=== PATIENT | male | born 1975 | race Caucasian/White ===

== ENCOUNTER 2020-06-16 14:55 | Inpatient (IN) | payer MEDICAID, SELFPAY ==
[2020-06-16] VITALS (7 sets, daily range): BP systolic 146–170; BP diastolic 89–142; PULSE 106–131; RESP 16–19; TEMP 35.9–36.9; O2SAT 97–98; BMI 29.3; BMI 28.8
--- NOTE | 2020-06-16 15:00 | EKG12_ITS ---
Test Reason : SEIZURES Blood Pressure : / mmHG Vent. Rate : 111 BPM Atrial Rate : 111 BPM P-R Int : 154 ms QRS Dur : 086 ms QT Int : 344 ms P-R-T Axes : 054 066 058 degrees QTc Int : 467 ms Sinus tachycardia Otherwise normal ECG Confirmed by KAREN JHAVERI, STEVIE ([id number]), editor trade journal JHONNY HUNTER ([id number]) on 06/18/2020 9:46:48 AM Referred By: GRACE Confirmed By:STEVIE JONES MD
--- NOTE | 2020-06-16 15:08 | ED.VIS.GEN ---
History of Present Illness Chief Complaint: Substance Abuse Informant: Patient Narrative: Presents requesting detox from alcohol. Drinking alcohol for years, alcohol of choice is vodka. He drinks up to a liter a day. He states today he already drank a liter last drink was an hour ago. Denies any recreational drug use. He states last assistance for alcohol was a month ago at [facility] and he was admitted for a week however upon discharge started drinking again. 2 weeks ago tried to stop drinking however had a withdrawal seizure was kept overnight at [facility]. He denies any suicidal homicidal ideations. He denies any morning tremors, however states he drinks when he wakes up. Prior similar symptoms: Yes Past Medical History Primary Care Physician: [facility] Doctor,Out of [NON-STAFF] - Past Medical History: - - Alcohol dependence Review of Systems General: Denies: Chills, Fever, Sweats Eyes: Denies: Visual changes - bilaterally, Diplopia ENT: Denies: Rhinorrhea, Sore throat Cardiovascular: Denies: Chest pain, Palpitations Respiratory: Denies: Dyspnea, Cough, Dyspnea on exertion Gastrointestinal: Denies: Abdominal pain, Nausea, Vomiting, Diarrhea, Melena, Hematochezia Genitourinary: Denies: Dysuria, Hematuria, Frequency Musculoskeletal: Denies: Back pain, Extremity Pain Skin: Denies: Rash, Wounds Neurological: Denies: Headache, Weakness, Numbness Psych: Denies: Depression, Suicidal thoughts, Suicidal ideations Physical Exam Vital Signs/Narrative: Vital Signs Temp Pulse Resp BP Pulse Ox 06/16/20 14:57 96.7 F L 128 H 16 170/142 H 98 General: Well nourished, Well developed, No Acute Distress Head: Normocephalic, Atraumatic Eyes: Perrl, EOMI ENT: Moist mucous membranes, No rhinorrhea Neck: Supple, Nontender Cardiovascular: Regular rate, Regular rhythm, No murmurs, Tachycardia Respiratory: No distress, CTA bilaterally, Chest nontender Abdomen: Soft, Nontender, Nondistended, Normal bowel sounds Back: Nontender, Normal Inspection Extremities: Nontender, No edema Skin: Normal color, No rash Neurological: Alert, Oriented x3, Cranial nerves II-XII grossly intact, Normal Strength, Normal Sensation Psychological: Normal affect, Normal Mood Diagnostic/Tx/Re-eval Abnormal Lab Results 02/07/0506/16/20 06/16/20 15:12 15:12 15:12 WBC 9.4 RBC 5.32 Hgb 16.5 Hct 48.9 MCV 91.9 MCH 31.0 MCHC 33.7 RDW Std Deviation 47.8 H RDW Coeff of Aleja 14.3 Plt Count 395 MPV 9.2 Immature Gran % (Auto) 0.500 Neut % (Auto) 69.2 Lymph % (Auto) 21.3 [place] % (Auto) 5.7 Eos % (Auto) 1.4 Baso % (Auto) 1.9 H Absolute Neuts (auto) 6.5 Absolute Lymphs (auto) 2.00 Nucleated RBC % 0 PT 11.5 L INR 0.9 Sodium 136 Potassium 4.7 Chloride 100 Carbon Dioxide 18.0 L Anion Gap 18 H BUN 14 Creatinine 0.89 Estim Creat Clear Calc 115.04 Est GFR (MDRD) Af Amer 119 Est GFR (MDRD) Non-Af 98 BUN/Creatinine Ratio 15.7 Glucose 65 L Calcium 8.8 Total Bilirubin 0.90 AST 82 H ALT 95 H Alkaline Phosphatase 115 Total Protein 7.6 Albumin 4.2 Globulin 3.4 Albumin/Globulin Ratio 1.2 Urine Opiates Screen Urine Methadone Screen Ur Barbiturates Screen Ur Phencyclidine Scrn Ur Amphetamines Screen U Methamphetamin-MDMA U Benzodiazepines Scrn Urine Cocaine Screen U Cannabinoids Screen Ur Drug Screen Comment Ethyl Alcohol 06/16/20 06/16/20 15:12 16:32 WBC RBC Hgb Hct MCV MCH MCHC RDW Std Deviation RDW Coeff of Aleja Plt Count MPV Immature Gran % (Auto) Neut % (Auto) Lymph % (Auto) [place] % (Auto) Eos % (Auto) Baso % (Auto) Absolute Neuts (auto) Absolute Lymphs (auto) Nucleated RBC % PT INR Sodium Potassium Chloride Carbon Dioxide Anion Gap BUN Creatinine Estim Creat Clear Calc Est GFR (MDRD) Af Amer Est GFR (MDRD) Non-Af BUN/Creatinine Ratio Glucose Calcium Total Bilirubin AST ALT Alkaline Phosphatase Total Protein Albumin Globulin Albumin/Globulin Ratio Urine Opiates Screen NEGATIVE Urine Methadone Screen NEGATIVE Ur Barbiturates Screen NEGATIVE Ur Phencyclidine Scrn NEGATIVE Ur Amphetamines Screen NEGATIVE U Methamphetamin-MDMA NEGATIVE U Benzodiazepines Scrn NEGATIVE Urine Cocaine Screen NEGATIVE U Cannabinoids Screen NEGATIVE Ur Drug Screen Comment Ethyl Alcohol 381.0 H* - EKG Initial EKG Interpretation: Sinus Rhythm - Sinus rate of 111, no ST or T wave changes. - Medical Decision Making Patient nontoxic tachycardic on eval EKG sinus rate of 111. He wants alcohol detox. Work-up alcohol returned at 381. Other labs essentially normal slight transaminitis however with alcohol history. Tox screen negative. Denies suicidal homicidal ideations. Discussed with hospitalist Dr. Smith for admission. ED Disposition - Plan for ED Patient: Disposition: Acute Care [facility] Diagnosis: Alcohol dependence, Transaminitis Referrals: [facility] Doctor,Out of [NON-STAFF] -
[2020-06-16 15:27] LABS: Absolute Neutrophil Count 6.5 X10^3/uL (2.0-7.7); Basophil# 0.18 X10^3/uL; Basophil% 1.9 % (0-1); Eosinophil# 0.13 X10^3/uL; Eosinophils% 1.4 % (0-5); Hematocrit 48.9 % (40-54); Hemoglobin 16.5 g/dL (13.0-16.5); Lymphocyte % 21.3 % (19-41); Mean Corp Hgb Conc 33.7 g/dL (32-36); Mean Corpuscular Volume 91.9 fL (80-94); Mean Platelet Vol. 9.2 fl (6.2-12.0); Monocyte# 0.53 X10^3/uL; Monocyte% 5.7 % (0-10); NRBC Flagged by Analyzer 0 % (0-5); Neutrophil # 6.48 X10^3/uL (2.7-7.7); Neutrophil % 69.2 % (47-70); Platelet Count 395 K/mm3 (150-450); RBC Distribution Width CV 14.3 % (11.6-14.6); RBC Distribution Width SD 47.8 fl (35.1-43.9); Red Blood Count 5.32 M/mm3 (4.6-6.2); White Blood Count 9.4 K/mm3 (4.4-11.0)
[2020-06-16 15:38] LABS: International Normalized Ratio 0.9; Prothrombin Time (Protime)PT. 11.5 SECONDS (11.7-14.9)
[2020-06-16] MEDS: 0.9% Normal Saline 1,000 ML 999 ML IV (15:47)
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
[2020-06-16 16:14] LABS: ALB/GLOB Ratio 1.2 RATIO (0.9-2.4); Albumin, Serum 4.2 g/dL (3.2-5.0); BUN 14 mg/dL (7-18); BUN/Creat Ratio 15.7 RATIO (10-20); Calcium,Total 8.8 mg/dL (8.5-10.1); Creatinine, Serum 0.89 mg/dL (0.70-1.30); EST Glomerular Filtration Rate 98 mL/min (>60); Est Glom Filt Rate - Afr Amer 119 mL/min (>60); Estimated Creatinine Clearance 115.04 ml/min; Globulin 3.4 g/dL (2.2-4.2); Glucose 65 mg/dL (74-106); Protein, Total 7.6 g/dL (6.4-8.2)
[2020-06-16 16:15] LABS: AST(SGOT) 82 U/L (15-37); Alanine Aminotransfer ALT/SGPT 95 U/L (16-61); Alkaline Phosphatase 115 U/L (45-117); Anion Gap 18 (5-15); Chloride 100 mmol/L (98-107); Potassium 4.7 mmol/L (3.5-5.1); Sodium Level 136 mmol/L (136-145)
[2020-06-16 17:26] LABS: Amphetamine Urine VISTA NEGATIVE (<1000 ng/mL); Barbiturate Urine VISTA NEGATIVE (< 200 ng/mL); Benzodiazepine Urine VISTA NEGATIVE (< 200 ng/mL); Cocaine Urine VISTA NEGATIVE (< 300 ng/mL); Ecstacy Urine VISTA NEGATIVE (< 500 ng/mL); Methadone Urine VISTA NEGATIVE (< 300 ng/mL); PCP Urine VISTA NEGATIVE (< 25 ng/mL); THC Urine VISTA NEGATIVE (< 50 ng/mL); Vista UDS pH Range 5
--- NOTE | 2020-06-16 17:29 | CM.ED ---
Social Work Consult: Substance Abuse Informant: Self Referral Met with patient in room. Introduced self and social service liaison role. Patient reports substance of choice as alcohol and is seeking medical management of withdrawal symptoms. Patient verbally agreeing to [facility]. Telephone call to [employer] [facility] HOLDEN, GONZALEZ
[2020-06-16] MEDS: Phenobarbital 32.4 MG Tablet 64.8 MG PO ×2 (18:57→21:36)
[2020-06-16] MEDS: Dextrose 5%/0.9% NaCl 1,000 ML 75 ML IV (18:58)
[2020-06-16] MEDS: hydrOXYzine PAM 25 MG Capsule 50 MG PO (19:42)
[2020-06-16] MEDS: Gabapentin 300 MG Capsule PO (19:42)
[2020-06-16] MEDS: 0.9% Saline Lock 10 ML Syringe IV (19:43)
[2020-06-16] MEDS: traZODone 100 MG Tablet PO (21:36)
[2020-06-17] VITALS (15 sets, daily range): BP systolic 125–150; BP diastolic 55–90; PULSE 80–105; RESP 16–18; TEMP 36.6–37; O2SAT 94–98
[2020-06-17] MEDS: Phenobarbital 32.4 MG Tablet 64.8 MG PO ×6 (01:43→21:37)
[2020-06-17 06:55] LABS: Absolute Lymphocyte Count 2.42 X10^3/uL (0.83-4.51); Absolute Neutrophil Count 3.3 X10^3/uL (2.0-7.7); Basophil# 0.06 X10^3/uL; Basophil% 0.9 % (0-1); Eosinophil# 0.25 X10^3/uL; Eosinophils% 3.7 % (0-5); Hematocrit 40.3 % (40-54); Hemoglobin 13.6 g/dL (13.0-16.5); Lymphocyte # 2.42 X10^3/ul (4.0); Lymphocyte % 35.7 % (19-41); Mean Corp Hgb Conc 33.7 g/dL (32-36); Mean Corpuscular Hgb 31.3 pg (27.0-32.0); Mean Corpuscular Volume 92.6 fL (80-94); Mean Platelet Vol. 9.1 fl (6.2-12.0); Monocyte# 0.67 X10^3/uL; Monocyte% 9.9 % (0-10); NRBC Flagged by Analyzer 0 % (0-5); Neutrophil # 3.32 X10^3/uL (2.7-7.7); Neutrophil % 49.1 % (47-70); Platelet Count 235 K/mm3 (150-450); RBC Distribution Width CV 13.9 % (11.6-14.6); RBC Distribution Width SD 47.8 fl (35.1-43.9); Red Blood Count 4.35 M/mm3 (4.6-6.2); White Blood Count 6.8 K/mm3 (4.4-11.0)
--- NOTE | 2020-06-17 07:32 | PN_ITS ---
Patient Problems: Active and Suspected Problems Alcohol withdrawal (Acute) Metabolic acidosis (Acute) Transaminitis (Acute) Alcohol dependence (Acute) Vitals/I&O's: Vital Signs Temp Pulse Resp BP Pulse Ox 98.2 F 87 18 150/70 H 98 06/17/20 05:46 06/17/20 05:46 06/17/20 05:46 06/17/20 05:46 06/17/20 06:41 Oxygen Delivery Method Room Air Weight: 96.3 kg Body Mass Index (BMI) 28.8 Intake and Output for Last 24 Hours 06/15/20 06/16/20 06/17/20 23:59 23:59 23:59 Intake Total 1000 / 1000 Balance 1000 / 1000 Laboratory Results 06/16/20 15:12: WBC 9.4, RBC 5.32, Hgb 16.5, Hct 48.9, MCV 91.9, MCH 31.0, MCHC 33.7, RDW Std Deviation 47.8 H, RDW Coeff of Aleja 14.3, Plt Count 395, MPV 9.2, Immature Gran % (Auto) 0.500, Neut % (Auto) 69.2, Lymph % (Auto) 21.3, [place] % (Auto) 5.7, Eos % (Auto) 1.4, Baso % (Auto) 1.9 H, Absolute Neuts (auto) 6.5, Absolute Lymphs (auto) 2.00, Nucleated RBC % 0 06/16/20 15:12: PT 11.5 L, INR 0.9 06/16/20 15:12: Sodium 136, Potassium 4.7, Chloride 100, Carbon Dioxide 18.0 L, Anion Gap 18 H, BUN 14, Creatinine 0.89, Estim Creat Clear Calc 115.04, Est GFR (MDRD) Af Amer 119, Est GFR (MDRD) Non-Af 98, BUN/Creatinine Ratio 15.7, Glucose 65 L, Calcium 8.8, Total Bilirubin 0.90, AST 82 H, ALT 95 H, Alkaline Phosphatase 115, Total Protein 7.6, Albumin 4.2, Globulin 3.4, Albumin/Globulin Ratio 1.2 06/16/20 15:12: Ethyl Alcohol 381.0 H* 06/16/20 16:32: Urine Opiates Screen NEGATIVE, Urine Methadone Screen NEGATIVE, Ur Barbiturates Screen NEGATIVE, Ur Phencyclidine Scrn NEGATIVE, Ur Amphetamines Screen NEGATIVE, U Methamphetamin-MDMA NEGATIVE, U Benzodiazepines Scrn NEGATIVE, Urine Cocaine Screen NEGATIVE, U Cannabinoids Screen NEGATIVE, Ur Drug Screen Comment 06/17/20 06:43: WBC 6.8, RBC 4.35 L, Hgb 13.6, Hct 40.3, MCV 92.6, MCH 31.3, MCHC 33.7, RDW Std Deviation 47.8 H, RDW Coeff of Aleja 13.9, Plt Count 235, MPV 9.1, Immature Gran % (Auto) 0.700, Neut % (Auto) 49.1, Lymph % (Auto) 35.7, [place] % (Auto) 9.9, Eos % (Auto) 3.7, Baso % (Auto) 0.9, Absolute Neuts (auto) 3.3, Absolute Lymphs (auto) 2.42, Nucleated RBC % 0 06/17/20 06:43: Sodium Pending, Potassium Pending, Chloride Pending, Carbon Di oxide Pending, Anion Gap Pending, BUN Pending, Creatinine Pending, Est GFR (MDRD) Af Amer Pending, Est GFR (MDRD) Non-Af Pending, BUN/Creatinine Ratio Pending, Glucose Pending, Calcium Pending, Phosphorus Pending, Magnesium Pending, Total Bilirubin Pending, AST Pending, ALT Pending, Alkaline Phosphatase Pending, Total Protein Pending, Albumin Pending Current Medications Al Hydroxide/Mg Hydroxide (Mag Hydrox/Al Hydrox/Simeth 30 Ml Udc) 30 ml PO Q6H PRN PRN PRN Reason: Gastric Burning Albuterol Sulfate (Albuterol 2.5 Mg/3 Ml Vial.Neb.) 2.5 mg INHALATION Q2H PRN PRN PRN Reason: Shortness of Breath/Wheezing Dicyclomine HCl (Dicyclomine 10 Mg Capsule) 20 mg PO Q6H PRN PRN PRN Reason: abdominal discomfort Folic Acid (Folic Acid 1 Mg Tablet) 1 mg PO DAILY@0800 ARGELIA Gabapentin (Gabapentin 300 Mg Capsule) 300 mg PO Q8H PRN PRN PRN Reason: moderate to severe anxiety Last Admin: 06/16/20 19:42 Dose: 300 mg Documented by: Hydroxyzine Pamoate (Hydroxyzine Carmenza 25 Mg Capsule) 50 mg PO Q4H PRN PRN PRN Reason: mild anxiety Last Admin: 06/16/20 19:42 Dose: 50 mg Documented by: Loperamide HCl (Loperamide 2 Mg Capsule) 2 mg PO Q4H PRN PRN PRN Reason: LOOSE STOOLS Melatonin (Melatonin 3 Mg Tablet) 3 mg PO QHS PRN PRN PRN Reason: INSOMNIA Phenobarbital (Phenobarbital 32.4 Mg Tablet) 97.2 mg PO Q4H ARGELIA; Taper Stop: 06/21/20 01:59 Last Admin: 06/17/20 05:47 Dose: 97.2 mg Documented by: Sodium Chloride (0.9% Saline Lock 10 Ml Syringe) 10 - 40 ml IV UD PRN PRN Reason: SALINE FLUSH Last Admin: 06/16/20 19:43 Dose: 10 ml Documented by: Thiamine HCl (Thiamine Hydrochloride 100 Mg Tablet) 100 mg PO DAILYCM ARGELIA Trazodone HCl (Trazodone 100 Mg Tablet) 100 mg PO QHS PRN PRN Reason: INSOMNIA Last Admin: 06/16/20 21:36 Dose: 100 mg Documented by: STROKE Vital Signs/Narrative: Vital Signs Temp Pulse Resp BP Pulse Ox 06/17/20 06:41 98 06/17/20 05:46 98.2 F 87 18 150/70 H 98 06/17/20 03:59 81 Medical Necessity - Tobacco Use Smoking Status: Current every day smoker Assessment/Plan All Active Problems Alcohol withdrawal (Acute) Metabolic acidosis (Acute) Transaminitis (Acute) Alcohol dependence (Acute)
[2020-06-17 07:33] LABS: ALB/GLOB Ratio 1.1 RATIO (0.9-2.4); AST(SGOT) 48 U/L (15-37); Alanine Aminotransfer ALT/SGPT 64 U/L (16-61); Albumin, Serum 3.1 g/dL (3.2-5.0); Alkaline Phosphatase 82 U/L (45-117); Anion Gap 4 (5-15); BUN 11 mg/dL (7-18); Calcium,Total 8.2 mg/dL (8.5-10.1); Chloride 103 mmol/L (98-107); Creatinine, Serum 0.78 mg/dL (0.70-1.30); EST Glomerular Filtration Rate 113 mL/min (>60); Est Glom Filt Rate - Afr Amer 137 mL/min (>60); Estimated Creatinine Clearance 131.27 ml/min; Globulin 2.8 g/dL (2.2-4.2); Glucose 86 mg/dL (74-106); Phosphorus 3.8 mg/dL (2.5-4.9); Potassium 3.9 mmol/L (3.5-5.1); Protein, Total 5.9 g/dL (6.4-8.2); Sodium Level 136 mmol/L (136-145)
[2020-06-17] MEDS: Thiamine Hydrochloride 100 MG Tablet PO (07:40)
[2020-06-17] MEDS: 0.9% Saline Lock 10 ML Syringe IV (07:40)
[2020-06-17] MEDS: Folic Acid 1 MG Tablet PO (07:40)
[2020-06-17] MEDS: Gabapentin 300 MG Capsule PO ×2 (09:01→21:33)
--- NOTE | 2020-06-17 10:01 | ADDICTION ---
This data analyst report writer met with PT in his room to complete ASAM, MSE, AUDIT assessments and to plan for discharge. PT A/Ox4 and amiable to this visit. All assessments completed, sent to [facility] and placed in PT's chart. PT appears appropriate for the 4.0 LOC based on ASAM. PT requesting to d/c to home and is scheduled to admit into [facility] on 06/22/20.
--- NOTE | 2020-06-17 11:34 | PN_ITS ---
<BoraDebbie RECONNAISSANCE MAN - Last Filed: 06/17/20 11:41> Patient Problems: Active and Suspected Problems Alcohol withdrawal (Acute) Metabolic acidosis (Acute) Transaminitis (Acute) Alcohol dependence (Acute) Subjective: Patient seen and examined. Denies significant withdrawal symptoms. No acute events overnight. Patient states he has had withdrawal seizure in the past. - Physical Exam Vitals/I&O's: Vital Signs Temp Pulse Resp BP Pulse Ox 98.5 F 89 18 128/77 H 96 06/17/20 08:51 06/17/20 08:51 06/17/20 08:51 06/17/20 08:51 06/17/20 08:51 Oxygen Delivery Method Room Air Weight: 212 lb 4.882 oz Body Mass Index (BMI) 28.8 Intake and Output for Last 24 Hours 06/15/20 06/16/20 06/17/20 23:59 23:59 23:59 Intake Total 1000 / 1000 951.25 / 951.25 Balance 1000 / 1000 951.25 / 951.25 General: Alert, Oriented x3, Cooperative HEENT: Atraumatic, PERRLA, EOMI, Normocephalic Neck: Supple, No JVD, Negative Carotid Bruits Lungs: Clear to auscultation, Normal air movement Cardiovascular: Regular rate, No murmurs Abdomen: Bowel Sounds Present, Soft, Non Tender Extremities: No clubbing, No cyanosis, No edema, Capillary Refill Less than 3 Seconds Skin: No rashes, No breakdown Musculoskeletal: No Tenderness to Palpation of Joints or Extremities Neurological: Cranial nerves II-XII grossly intact, Neuro grossly intact Psych/Mental Status: Normal Affect, Appropriate Laboratory Results 06/16/20 15:12: WBC 9.4, RBC 5.32, Hgb 16.5, Hct 48.9, MCV 91.9, MCH 31.0, MCHC 33.7, RDW Std Deviation 47.8 H, RDW Coeff of Aleja 14.3, Plt Count 395, MPV 9.2, Immature Gran % (Auto) 0.500, Neut % (Auto) 69.2, Lymph % (Auto) 21.3, Knott % (Auto) 5.7, Eos % (Auto) 1.4, Baso % (Auto) 1.9 H, Absolute Neuts (auto) 6.5, Absolute Lymphs (auto) 2.00, Nucleated RBC % 0 06/16/20 15:12: PT 11.5 L, INR 0.9 06/16/20 15:12: Sodium 136, Potassium 4.7, Chloride 100, Carbon Dioxide 18.0 L, Anion Gap 18 H, BUN 14, Creatinine 0.89, Estim Creat Clear Calc 115.04, Est GFR (MDRD) Af Amer 119, Est GFR (MDRD) Non-Af 98, BUN/Creatinine Ratio 15.7, Glucose 65 L, Calcium 8.8, Total Bilirubin 0.90, AST 82 H, ALT 95 H, Alkaline Phosphatase 115, Total Protein 7.6, Albumin 4.2, Globulin 3.4, Albumin/Globulin Ratio 1.2 06/16/20 15:12: Ethyl Alcohol 381.0 H* 06/16/20 16:32: Urine Opiates Screen NEGATIVE, Urine Methadone Screen NEGATIVE, Ur Barbiturates Screen NEGATIVE, Ur Phencyclidine Scrn NEGATIVE, Ur Amphetamines Screen NEGATIVE, U Methamphetamin-MDMA NEGATIVE, U Benzodiazepines Scrn NEGATIVE, Urine Cocaine Screen NEGATIVE, U Cannabinoids Screen NEGATIVE, Ur Drug Screen Comment 06/17/20 06:43: WBC 6.8, RBC 4.35 L, Hgb 13.6, Hct 40.3, MCV 92.6, MCH 31.3, MCHC 33.7, RDW Std Deviation 47.8 H, RDW Coeff of Aleja 13.9, Plt Count 235, MPV 9.1, Immature Gran % (Auto) 0.700, Neut % (Auto) 49.1, Lymph % (Auto) 35.7, Knott % (Auto) 9.9, Eos % (Auto) 3.7, Baso % (Auto) 0.9, Absolute Neuts (auto) 3.3, Absolute Lymphs (auto) 2.42, Nucleated RBC % 0 06/17/20 06:43: Sodium 136, Potassium 3.9, Chloride 103, Carbon Dioxide 29.0, Anion Gap 4 L, BUN 11, Creatinine 0.78, Estim Creat Clear Calc 131.27, Est GFR (MDRD) Af Amer 137, Est GFR (MDRD) Non-Af 113, BUN/Creatinine Ratio 14.0, Glucose 86, Calcium 8.2 L, Phosphorus 3.8, Magnesium 2.0, Total Bilirubin 1.60 H , AST 48 H, ALT 64 H, Alkaline Phosphatase 82, Total Protein 5.9 L, Albumin 3.1 L, Globulin 2.8, Albumin/Globulin Ratio 1.1 Current Medications Al Hydroxide/Mg Hydroxide (Mag Hydrox/Al Hydrox/Simeth 30 Ml Udc) 30 ml PO Q6H PRN PRN PRN Reason: Gastric Burning Albuterol Sulfate (Albuterol 2.5 Mg/3 Ml Vial.Neb.) 2.5 mg INHALATION Q2H PRN PRN PRN Reason: Shortness of Breath/Wheezing Dicyclomine HCl (Dicyclomine 10 Mg Capsule) 20 mg PO Q6H PRN PRN PRN Reason: abdominal discomfort Folic Acid (Folic Acid 1 Mg Tablet) 1 mg PO DAILY@0800 [facility] Last Admin: 06/17/20 07:40 Dose: 1 mg Documented by: Gabapentin (Gabapentin 300 Mg Capsule) 300 mg PO Q8H PRN PRN PRN Reason: moderate to severe anxiety Last Admin: 06/17/20 09:01 Dose: 300 mg Documented by: Hydroxyzine Pamoate (Hydroxyzine Carmenza 25 Mg Capsule) 50 mg PO Q4H PRN PRN PRN Reason: mild anxiety Last Admin: 06/16/20 19:42 Dose: 50 mg Documented by: Loperamide HCl (Loperamide 2 Mg Capsule) 2 mg PO Q4H PRN PRN PRN Reason: LOOSE STOOLS Melatonin (Melatonin 3 Mg Tablet) 3 mg PO QHS PRN PRN PRN Reason: INSOMNIA Phenobarbital (Phenobarbital 32.4 Mg Tablet) 97.2 mg PO Q4H [facility]; Taper Stop: 06/21/20 01:59 Last Admin: 06/17/20 09:38 Dose: 97.2 mg Documented by: Sodium Chloride (0.9% Saline Lock 10 Ml Syringe) 10 - 40 ml IV UD PRN PRN Reason: SALINE FLUSH Last Admin: 06/17/20 07:40 Dose: 10 ml Documented by: Thiamine HCl (Thiamine Hydrochloride 100 Mg Tablet) 100 mg PO DAILYCM [facility] Last Admin: 06/17/20 07:40 Dose: 100 mg Documented by: Trazodone HCl (Trazodone 100 Mg Tablet) 100 mg PO QHS PRN PRN Reason: INSOMNIA Last Admin: 06/16/20 21:36 Dose: 100 mg Documented by: Medical Necessity - Tobacco Use Smoking Status: Current every day smoker Assessment/Plan All Active Problems Alcohol withdrawal (Acute) Metabolic acidosis (Acute) Transaminitis (Acute) Alcohol dependence (Acute) 1. Acute alcohol withdrawal, chronic alcohol dependence-medical stabilization per protocol. Phenobarbital taper. As needed regimen for somatic complaints. Thiamine, folic acid, multivitamin supplementation. [facility] consult. CIWA/Ativan protocol. Alcohol level 381 on admission. Tox screen otherwise negative. Per [facility] consult note, plan for residential admission 06/22/2020. 2. Anion gap metabolic acidosis-secondary to above, improved. 3. Mild transaminitis-secondary to #1. Repeat improved. DVT prophylaxis-low risk, not indicated This patient was seen by MELI Bronson under the supervision of Dr. Mcneal. <Michelle Mcneal - Last Filed: 06/17/20 15:58> - Physical Exam Vitals/I&O's: Vital Signs Temp Pulse Resp BP Pulse Ox 98.4 F 95 18 143/88 H 98 06/17/20 13:01 06/17/20 13:01 06/17/20 13:01 06/17/20 13:01 06/17/20 13:01 Oxygen Delivery Method Room Air Weight: 96.3 kg Body Mass Index (BMI) 28.8 Intake and Output for Last 24 Hours 06/15/20 06/16/20 06/17/20 23:59 23:59 23:59 Intake Total 1000 / 1000 951.25 / 951.25 Balance 1000 / 1000 951.25 / 951.25 Laboratory Results 06/16/20 15:12: WBC 9.4, RBC 5.32, Hgb 16.5, Hct 48.9, MCV 91.9, MCH 31.0, MCHC 33.7, RDW Std Deviation 47.8 H, RDW Coeff of Aleja 14.3, Plt Count 395, MPV 9.2, Immature Gran % (Auto) 0.500, Neut % (Auto) 69.2, Lymph % (Auto) 21.3, Knott % (Auto) 5.7, Eos % (Auto) 1.4, Baso % (Auto) 1.9 H, Absolute Neuts (auto) 6.5, Absolute Lymphs (auto) 2.00, Nucleated RBC % 0 06/16/20 15:12: PT 11.5 L, INR 0.9 06/16/20 15:12: Sodium 136, Potassium 4.7, Chloride 100, Carbon Dioxide 18.0 L, Anion Gap 18 H, BUN 14, Creatinine 0.89, Estim Creat Clear Calc 115.04, Est GFR (MDRD) Af Amer 119, Est GFR (MDRD) Non-Af 98, BUN/Creatinine Ratio 15.7, Glucose 65 L, Calcium 8.8, Total Bilirubin 0.90, AST 82 H, ALT 95 H, Alkaline Phosphatase 115, Total Protein 7.6, Albumin 4.2, Globulin 3.4, Albumin/Globulin Ratio 1.2 06/16/20 15:12: Ethyl Alcohol 381.0 H* 06/16/20 16:32: Urine Opiates Screen NEGATIVE, Urine Methadone Screen NEGATIVE, Ur Barbiturates Screen NEGATIVE, Ur Phencyclidine Scrn NEGATIVE, Ur Amphetamines Screen NEGATIVE, U Methamphetamin-MDMA NEGATIVE, U Benzodiazepines Scrn NEGATIVE, Urine Cocaine Screen NEGATIVE, U Cannabinoids Screen NEGATIVE, Ur Drug Screen Comment 06/17/20 06:43: WBC 6.8, RBC 4.35 L, Hgb 13.6, Hct 40.3, MCV 92.6, MCH 31.3, MCHC 33.7, RDW Std Deviation 47.8 H, RDW Coeff of Aleja 13.9, Plt Count 235, MPV 9.1, Immature Gran % (Auto) 0.700, Neut % (Auto) 49.1, Lymph % (Auto) 35.7, Knott % (Auto) 9.9, Eos % (Auto) 3.7, Baso % (Auto) 0.9, Absolute Neuts (auto) 3.3, Absolute Lymphs (auto) 2.42, Nucleated RBC % 0 06/17/20 06:43: Sodium 136, Potassium 3.9, Chloride 103, Carbon Dioxide 29.0, Anion Gap 4 L, BUN 11, Creatinine 0.78, Estim Creat Clear Calc 131.27, Est GFR (MDRD) Af Amer 137, Est GFR (MDRD) Non-Af 113, BUN/Creatinine Ratio 14.0, Glucose 86, Calcium 8.2 L, Phosphorus 3.8, Magnesium 2.0, Total Bilirubin 1.60 H , AST 48 H, ALT 64 H, Alkaline Phosphatase 82, Total Protein 5.9 L, Albumin 3.1 L, Globulin 2.8, Albumin/Globulin Ratio 1.1 Current Medications Al Hydroxide/Mg Hydroxide (Mag Hydrox/Al Hydrox/Simeth 30 Ml Udc) 30 ml PO Q6H PRN PRN PRN Reason: Gastric Burning Albuterol Sulfate (Albuterol 2.5 Mg/3 Ml Vial.Neb.) 2.5 mg INHALATION Q2H PRN PRN PRN Reason: Shortness of Breath/Wheezing Dicyclomine HCl (Dicyclomine 10 Mg Capsule) 20 mg PO Q6H PRN PRN PRN Reason: abdominal discomfort Folic Acid (Folic Acid 1 Mg Tablet) 1 mg PO DAILY@0800 [facility] Last Admin: 06/17/20 07:40 Dose: 1 mg Documented by: Gabapentin (Gabapentin 300 Mg Capsule) 300 mg PO Q8H PRN PRN PRN Reason: moderate to severe anxiety Last Admin: 06/17/20 09:01 Dose: 300 mg Documented by: Hydroxyzine Pamoate (Hydroxyzine Carmenza 25 Mg Capsule) 50 mg PO Q4H PRN PRN PRN Reason: mild anxiety Last Admin: 06/17/20 13:11 Dose: 50 mg Documented by: Loperamide HCl (Loperamide 2 Mg Capsule) 2 mg PO Q4H PRN PRN PRN Reason: LOOSE STOOLS Melatonin (Melatonin 3 Mg Tablet) 3 mg PO QHS PRN PRN PRN Reason: INSOMNIA Nutritional Formula (Lactose Free) (Ensure Enlive 120 Ml Liquid) 120 ml PO 4X/DAY [facility] Phenobarbital (Phenobarbital 32.4 Mg Tablet) 97.2 mg PO Q4H [facility]; Taper Stop: 06/21/20 01:59 Last Admin: 06/17/20 13:47 Dose: 97.2 mg Documented by: Sodium Chloride (0.9% Saline Lock 10 Ml Syringe) 10 - 40 ml IV UD PRN PRN Reason: SALINE FLUSH Last Admin: 06/17/20 07:40 Dose: 10 ml Documented by: Thiamine HCl (Thiamine Hydrochloride 100 Mg Tablet) 100 mg PO DAILYCM [facility] Last Admin: 06/17/20 07:40 Dose: 100 mg Documented by: Trazodone HCl (Trazodone 100 Mg Tablet) 100 mg PO QHS PRN PRN Reason: INSOMNIA Last Admin: 06/16/20 21:36 Dose: 100 mg Documented by: Assessment/Plan This patient was seen in conjunction with Debbie Sahni NP. I have independently interviewed and examined the patient and reviewed pertinent historical, laboratory, and other data. Please refer to her note for patient's presentation, findings, and recommendations. Patient was seen and examined. No acute events overnight. He feels improved, stable Vitals were reviewed -stable Physical Exam: Gen: Looks in some discomfort, not pale, not jaundiced, alert oriented x3 CVS:HS I +II, regular, no murmurs RESP: Diminished at lung bases GI: BS present and normal, nontender, no palpable organs EXT:No edema Labs reviewed: ASSESSMENT: 1. Acute alcohol withdrawal 2. Anion gap metabolic acidosis 3. Elevated liver function tests Meds reviewed Plan: Continue on phenobarbital withdrawal protocol Inpatient E&M: 90552 Subs Hosp L2
[2020-06-17] MEDS: hydrOXYzine PAM 25 MG Capsule 50 MG PO (13:11)
--- NOTE | 2020-06-17 14:31 | CHAPLAIN ---
Type of Pastoral Visit _x__ Initial Visit ___ Follow-up Visit ___ On-call Visit ___ General Patient Visit ___ Spiritual Assessment ___ Family Conference ___ Bereavement ___ Rapid Response ___ Code Blue ___ Other (describe below) Pastoral Care Referral From _x__ Patient ___ Family ___ Nurse ___ Physician ___ Tester Rocket Engine ___ Material Expediter ___ Other (describe below) Sacrament/Intervention _x__ Active listening ___ Anointing ___ Islam ___ Bereavement ___ Communion ___ Ghislaine exploration ___ _x__ Life review _x__ Prayer ___ Reconciliation ___ Sacrament of Sick _x__ Supportive presence ___ Wedding ___ Other (describe below) Pastoral Comments
[2020-06-17] MEDS: LORazepam 2 MG/ML Syringe IV (15:38)
[2020-06-17] MEDS: LORazepam 1 MG Tablet 2 MG PO ×2 (17:21→22:04)
[2020-06-17] MEDS: traZODone 100 MG Tablet PO (21:33)
[2020-06-18] MEDS: Phenobarbital 32.4 MG Tablet 64.8 MG PO ×4 (01:51→13:20)
[2020-06-18 02:00] VITALS: BP 137/91; PULSE 78; PULSE 82; RESP 16; TEMP 36.3; O2SAT 97
[2020-06-18 03:45] VITALS: PULSE 74
[2020-06-18] MEDS: Thiamine Hydrochloride 100 MG Tablet PO (07:34)
[2020-06-18] MEDS: Folic Acid 1 MG Tablet PO (07:34)
[2020-06-18 07:48] VITALS: O2SAT 97
[2020-06-18 08:49] VITALS: BP 148/89; PULSE 97; RESP 16; TEMP 36.6; O2SAT 100
--- NOTE | 2020-06-18 10:17 | PCM.PN.HOSP ---
Patient Problems: Active and Suspected Problems Alcohol withdrawal (Acute) Metabolic acidosis (Acute) Transaminitis (Acute) Alcohol dependence (Acute) Subjective: Patient states he feels a little confused. Denies any internal tremulous this. States his withdrawal has been fairly smooth with the phenobarbital. Has no acute complaints. Is worried about his ex- because she has not called in that he knows of and he has not heard from her. I did remind him he does not have a phone at this time for her to call him at. Vitals/I&O's: Vital Signs Temp Pulse Resp BP Pulse Ox 97.9 F 97 16 148/89 H 100 06/18/20 08:49 06/18/20 08:49 06/18/20 08:49 06/18/20 08:49 06/18/20 08:49 Oxygen Delivery Method Room Air Weight: 96.3 kg Body Mass Index (BMI) 28.8 Intake and Output for Last 24 Hours 06/16/20 06/17/20 06/18/20 23:59 23:59 23:59 Intake Total 1000 / 1000 951.25 / 951.25 Output Total 100 / 100 Balance 1000 / 1000 951.25 / 851.25 -100 / -100 General: Alert, Oriented x3, Cooperative, No apparent distress, Well developed, Well nourished, - - Was confused on the day of the week and when he was admitted, no hallucinations, patient appears older than stated age HEENT: Atraumatic, Normocephalic Oral: Moist Mucosa, No Gingival or Mucosal Lesions/ Ulcerations Neck: Supple, Trachea Midline Lungs: Clear to auscultation, No rhonchi, No wheeze, No rales, Diminished Cardiovascular: Regular rate, Regular Rhythm, Normal S1, Normal S2, No murmurs, No Ectopic Activity, No rub noted, No Gallop Abdomen: Bowel Sounds Present, Soft, Non Tender, Non-Distended, - - Large abdominal incisional hernia Extremities: No clubbing, No cyanosis, No edema, Capillary Refill Less than 3 Seconds, Peripheral Pulses Normal Skin: No rashes, No breakdown Neurological: Cranial nerves II-XII grossly intact, Neuro grossly intact Psych/Mental Status: Normal Affect, Appropriate Current Medications Al Hydroxide/Mg Hydroxide (Mag Hydrox/Al Hydrox/Simeth 30 Ml Udc) 30 ml PO Q6H PRN PRN PRN Reason: Gastric Burning Albuterol Sulfate (Albuterol 2.5 Mg/3 Ml Vial.Neb.) 2.5 mg INHALATION Q2H PRN PRN PRN Reason: Shortness of Breath/Wheezing Dicyclomine HCl (Dicyclomine 10 Mg Capsule) 20 mg PO Q6H PRN PRN PRN Reason: abdominal discomfort Folic Acid (Folic Acid 1 Mg Tablet) 1 mg PO DAILY@0800 [facility] Last Admin: 06/18/20 07:34 Dose: 1 mg Documented by: Gabapentin (Gabapentin 300 Mg Capsule) 300 mg PO Q8H PRN PRN PRN Reason: moderate to severe anxiety Last Admin: 06/17/20 21:33 Dose: 300 mg Documented by: Hydroxyzine Pamoate (Hydroxyzine Carmenza 25 Mg Capsule) 50 mg PO Q4H PRN PRN PRN Reason: mild anxiety Last Admin: 06/17/20 13:11 Dose: 50 mg Documented by: Loperamide HCl (Loperamide 2 Mg Capsule) 2 mg PO Q4H PRN PRN PRN Reason: LOOSE STOOLS Lorazepam (Lorazepam 1 Mg Tablet) 2 mg PO Q2H PRN PRN; Protocol PRN Reason: CIWA score > 8 but <15 Last Admin: 06/17/20 22:04 Dose: 2 mg Documented by: Lorazepam (Lorazepam 1 Mg Tablet) 2 mg PO UD PRN; Protocol PRN Reason: CIWA score >/=15. Lorazepam (Lorazepam 2 Mg/Ml Syringe) 2 mg IV Q2H PRN PRN; Protocol PRN Reason: CIWA score > 8 but <15 Last Admin: 06/17/20 15:38 Dose: 2 mg Documented by: Lorazepam (Lorazepam 2 Mg/Ml Syringe) 2 mg IV UD PRN; Protocol PRN Reason: CIWA score >/=15. Melatonin (Melatonin 3 Mg Tablet) 3 mg PO QHS PRN PRN PRN Reason: INSOMNIA Nutritional Formula (Lactose Free) (Ensure Enlive 120 Ml Liquid) 120 ml PO 4X/DAY [facility] Last Admin: 06/17/20 21:35 Dose: 120 ml Documented by: Phenobarbital (Phenobarbital 32.4 Mg Tablet) 64.8 mg PO Q4H [facility]; Taper Stop: 06/21/20 01:59 Last Admin: 06/18/20 06:55 Dose: 64.8 mg Documented by: Sodium Chloride (0.9% Saline Lock 10 Ml Syringe) 10 - 40 ml IV UD PRN PRN Reason: SALINE FLUSH Last Admin: 06/17/20 07:40 Dose: 10 ml Documented by: Thiamine HCl (Thiamine Hydrochloride 100 Mg Tablet) 100 mg PO DAILYCM [facility] Last Admin: 06/18/20 07:34 Dose: 100 mg Documented by: Trazodone HCl (Trazodone 100 Mg Tablet) 100 mg PO QHS PRN PRN Reason: INSOMNIA Last Admin: 06/17/20 21:33 Dose: 100 mg Documented by: STROKE Vital Signs/Narrative: Vital Signs Temp Pulse Resp BP Pulse Ox 06/18/20 08:49 97.9 F 97 16 148/89 H 100 06/18/20 07:48 97 Medical Necessity - Tobacco Use Smoking Status: Current every day smoker Assessment/Plan All Active Problems Alcohol withdrawal (Acute) Metabolic acidosis (Acute) Transaminitis (Acute) Alcohol dependence (Acute) Acute alcohol withdrawal -Detox with phenobarbital--> patient is now on 64.8 mg every 4 hours -Supportive medications -180 following and the plan as of yesterday was the patient will be discharged go to the hotel he has been staying at 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 and be admitted on 06/22/2020 06/15/1979 -Thiamine and folate Anion gap metabolic acidosis secondary to acute ethyl alcohol toxicity -Resolved Hypoglycemia -Resolved -Off IV fluids Mild transaminitis -Had trended down on repeat lab -No need to repeat Hyperbilirubinemia -Related to acute liver injury from alcohol -Should resolve as liver improves Large abdominal surgical hernia -Chronic/stable DVT prophylaxis -Early ambulation -CODE STATUS -Full Disposition -Patient is to be discharged and be admitted to 180 on 06/22/2020 there is some question whether he will be discharged before his admission date as he stated yesterday he wanted to go to his hotel to bean picker machine operator his items before being admitted at 180 Inpatient E&M: [id number] [facility] Hosp L2
[2020-06-18] MEDS: hydrOXYzine PAM 25 MG Capsule 50 MG PO (10:28)
[2020-06-18] MEDS: LORazepam 1 MG Tablet 2 MG PO (12:48)
--- NOTE | 2020-06-18 12:50 | NURSING ---
Patient requesting to speak to charge nurse or patient advocate. Marco unavailable at this time, this nurse into talk to patient. Patient states he is feeling very anxious and was thinking about signing out. Patient upset about not getting ketchup and mustard with his lunch tray, and then he stated the staff were unprofessional when they brought it in. Pt no longer wanting to eat his lunch tray. This nurse offered to get something else to eat and patient was agreeable. Patient states that he wants to stay and not leave against medical advice. States he is just feeling very anxious and upset that he has not been able to talk to Lona Ramirez. Pt states she is his support person. Patient reminded of the policy and agreement he made on admission that he cannot have a phone. Pt voiced understanding. This nurse offered to give Lona a call and update her on patient's condition. Lona called by this nurse, no answer - left voicemail. Luis BURDICK aware and will medicate patient for anxiety.
--- NOTE | 2020-06-18 14:14 | CASEMGMT ---
Social Work Note MAG received call from Sapna at [facility] requesting H+P and discharge paperwork. MAG updated Sapna that this worker can fax H+P but discharge paperwork is not available as pt is not discharged. MAG faxed H+P. Rica Crum BIRD TRAPPER, CIRCULAR HEAD SAW OPERATOR
[2020-06-18 15:10] VITALS: BP 134/90; PULSE 113; RESP 16; TEMP 36.9; O2SAT 98
== END 2020-06-18 16:30 | disposition left against medical advice (07) | DRG 770 ==
LOC: ED 17:36 → MS3 18:37
PROVIDERS: Admitting Provider Internal Medicine; Emergency Provider Emergency Medicine; Visit Provider Internal Medicine
DX: F10.239 Alcohol dependence with withdrawal, unspecified (principal); Y90.9 Presence of alcohol in blood, level not specified; K46.9 Unspecified abdominal hernia without obstruction or gangrene; Z87.891 Personal history of nicotine dependence; Z53.21 Procedure and treatment not carried out due to patient leaving prior to being seen by health care provider
CPT/HCPCS: 36415; 80053; 80307; 82077; 83735; 84100; 85025; 85610; 93005; 97802; 99285; A4216